=== PATIENT | female | born 1940 | race Caucasian/White ===

== ENCOUNTER 2019-11-19 00:24 | Day surgery (SDC) | payer MEDICARE, SELFPAY ==
[2019-11-03 13:59] VITALS: BMI 27.4
--- NOTE | 2019-11-18 13:46 | WPDANESEPPF ---
Anes - Initial Pre Proc Eval Procedure: Operation Date: 11/19/19 07:30 Proposed Procedures p Hammer Toe Repair Second and Third Digits Right Foot - Marek Bauer JR, MD Date/Time: 11/18/19 13:46 Surgeon: Marek Bauer JR, MD Pre Op Diagnosis: Hammer Toe 2nd and 3rd digits right foot Patient Data Age: 79 Gender: F Height: 5 ft 4 in Weight: 72.6 kg Allergies Allergy/AdvReac Type Severity Reaction Status Date / Time latex Allergy Unknown ITCHING Verified 11/03/19 13:28 AND RASH oxycodone Allergy Unknown Hallucinati Verified 11/03/19 13:18 ng tramadol Allergy Unknown Hallucinati Verified 11/03/19 13:15 ng Home Medications Medication Instructions Recorded Confirmed Type aspirin 325 mg PO DAILY 11/03/19 11/03/19 History cetirizine [Zyrtec] 10 mg PO DAILY 11/03/19 11/03/19 History famotidine [Pepcid AC] 20 mg PO PRN PRN 11/03/19 11/03/19 History hydrochlorothiazide 12.5 mg PO DAILY 11/03/19 11/03/19 History metoprolol succinate 25 mg PO DAILY 11/03/19 11/03/19 History multivit with min-folic acid 0.4 mg PO DAILY 11/03/19 11/03/19 History [Adult One Daily Multivitamin] naproxen sodium [Aleve] 220 mg PO BID PRN 11/03/19 11/03/19 History turmeric 400 mg PO DAILY 11/03/19 11/03/19 History Patient hx anesthesia problems: none Family hx anesthesia problems: none [facility] [place] Past Medical History Medical History (Updated 11/18/19 @ 13:46 by Duy Tom MD) Atrial fibrillation Breast cancer h/o breast cancer; and liver cancer; both resected GERD (gastroesophageal reflux disease) Hypertension MAIRNA (obstructive sleep apnea) Anes - Eval Final PreProcedure Day of Procedure 11/18/19 13:46 Patient weight: normal Heart: regular rate and rhythm Lungs: clear to auscultation Airway: Mallampati scale Neurological: alert and oriented Last oral intake: >/= 8 hours ASA classification: III Emergent: no Anesthetic plan: proceed Anesthesia type and monitoring: general GIVS and standard monitoring Informed Consent: The patient's anesthetic plan and its attendant risks and benefits were discussed with the patient/family/POA. Questions were solicited and answers provided to the satisfaction of the patient/family/POA.
--- NOTE | ~2019-11-19 | XR_ITS ---
EXAMINATION: XR surgery orthopedic DATE: 11/19/2019 08:11 INDICATION: Right foot hammertoe repair. TECHNIQUE: A single intraoperative fluoroscopic view of right foot was obtained. I was not present. F luoroscopy exposure time was 2.0 seconds. COMPARISON: None. FINDINGS: There are changes of fusion procedures of the second and third proximal interphalangeal joseline nts. No fracture. IMPRESSION: 1. Fusion procedures of the second and third proximal interphalangeal joints. Reviewed, dictated and finalized at location A. [employer]
[2019-11-19 06:15] VITALS: BP 170/81; PULSE 71; RESP 16; TEMP 36.7; O2SAT 98; BMI 28.0
[2019-11-19] MEDS: LACTATED RINGERS 1,000 ML 30 ML IV CONT (07:10)
--- NOTE | 2019-11-19 07:14 | WPDHPUPDATE1 ---
History and Physical Update Update Date/Time: 11/19/19 07:14 History and Physical has been reviewed, including an updated exam of the patient. There are NO changes in the patient's condition. Risks, benefits, and alternatives have been discussed and questions answered. Patient agrees to proceed with procedure.
[2019-11-19] MEDS: ceFAZolin 2 GM/D5W 50 ML 2 GM/50 ML BAG IVPB (07:27)
--- NOTE | 2019-11-19 08:21 | PM.OP ---
Procedure Note - Brief Procedure Note - Brief Date of procedure: 11/19/19 Pre-op diagnosis: Hammer Toe 2nd and 3rd digits right foot Post-op diagnosis: same Procedure performed: Hammertoe repair 2nd and 3rd digits of the right foot Anesthesia: GLMA Surgeon: Marek Bauer JR, DPM Estimated blood loss (mL): 1 Complications: No immediate complications Condition: stable Disposition: same day
[2019-11-19 08:31] VITALS: BP 164/53; PULSE 58; RESP 16; O2SAT 95
[2019-11-19 09:00] VITALS: BP 137/74; PULSE 64; RESP 16; O2SAT 100
[2019-11-19 09:22] VITALS: BP 150/87; PULSE 65; RESP 16
--- NOTE | 2019-11-19 09:38 | SUR.PHASEII ---
POST-OP SHOE PLACED TO RIGHT FOOT. FEELING RETURNING TO RIGHT GREAT TOE; ABLE TO WIGGLE IT.
--- NOTE | 2019-11-19 15:21 | OP_ITS ---
DATE OF PROCEDURE: 11/19/2019 PREOPERATIVE DIAGNOSIS: Hammertoe deformity, right 2nd and 3rd digits. POSTOPERATIVE DIAGNOSIS: Hammertoe deformity, right 2nd and 3rd digits. PROCEDURE: Hammertoe repair of the 2nd and 3rd digits of the right foot. PATHOLOGY: None. ANESTHESIA: MAC with local. HEMOSTASIS: Pneumatic ankle tourniquet at 250 mmHg. ESTIMATED BLOOD LOSS: Minimal. MATERIALS USED: [employer] Phalinx hammertoe implants, extra small and a small, 4-0 Vicryl and 4-0 Prolene. INJECTABLES: 20 cc of a 1:1 mixture of 2% lidocaine plain and 0.5% Marcaine plain injected preoperatively. COMPLICATIONS: None. PROCEDURE IN DETAIL: Under mild sedation, the patient was brought into the operating room, placed on the operating table in the supine position. Pneumatic ankle tourniquet was placed about the patient's right ankle. Following IV sedation, local anesthesia obtained about the right foot utilizing 20 cc of a 1:1 mixture of 2% lidocaine plain and 0.5% Marcaine plain. The foot was then scrubbed, prepped, and draped in the usual aseptic manner. An Esmarch bandage was then used to examine the patient's right foot and the pneumatic ankle tourniquet was inflated. Surgery began in the following manner: Attention was directed to the dorsal aspect of the 2nd digit of the right foot where a linear incision was made starting just distal to the proximal interphalangeal joint of the right 2nd digit and extending to the central shaft of the proximal phalanx. The incision was continued deep down to the subcutaneous tissues using sharp and blunt dissection. All bleeders were ligated and cauterized as necessary. At this point, a transverse tenotomy was performed over the dorsal aspect of the proximal interphalangeal joint of the right 2nd digit. Next, the periosteum and capsular structures were freed from the head of the proximal phalanx as well as the base of the middle phalanx. Next, an oscillating bone saw was used to resect the head of the proximal phalanx. Next, the [employer] hammertoe implant cannulated system was used to make a commercial helicopter pilot hole down the canal of the proximal phalanx. A planer was used to smooth the resection site to the proximal phalanx in order to make the resection site adequately apposed along the middle phalanx. Next, a small drill was used to make a canal for the proximal phalanx. The same procedure was also performed for the middle phalanx. Next, a small Phalinx from [employer] implant was screwed into the base of the middle phalanx and then the proximal stem of the hammertoe implant was adequately press-fitted into the proximal phalanx. Fluoroscopy was used to make sure that the implant was appropriately positioned. Excellent apposition of the proximal interphalangeal joint was noted. The same exact procedure was duplicated for the 3rd digit aside from the fact that I used an extra-small hammertoe implant from [employer] Phalin[employer] System. The wound sites were then flushed with copious amounts of sterile saline. The tendon overlying the proximal interphalangeal joint was reapproximated and coapted utilizing 4-0 Vicryl. Next, the subcutaneous structures were reapproximated and coapted utilizing 4-0 Vicryl and next the skin was reapproximated and coapted utilizing 4-0 Prolene in horizontal mattress suture fashion technique. Final fluoroscopic images were obtained to make sure that the hammertoe implants were adequately positioned within the 2nd and 3rd digits and also that there was excellent apposition. Upon completion of the procedure, the incision sites were dressed with Adaptic, 4x4s, Kerlix, and Coban. The pneumatic ankle tourniquet was then deflated and a prompt hyperemic response was noted to all digits of the right foot. A postop breonna
== END 2019-11-19 09:40 | disposition home or self-care (01) ==
PROVIDERS: PCP Pediatrics; Visit Provider Podiatrist Foot & Ankle Surgery
PROC: (CPT 28285; principal; 2019-11-19 07:30)
DX: M20.41 Other hammer toe(s) (acquired), right foot (principal); I48.91 Unspecified atrial fibrillation; I10 Essential (primary) hypertension; G47.33 Obstructive sleep apnea (adult) (pediatric); K21.9 Gastro-esophageal reflux disease without esophagitis; Z85.3 Personal history of malignant neoplasm of breast; Z85.05 Personal history of malignant neoplasm of liver; Z79.82 Long term (current) use of aspirin
CPT/HCPCS: 28285 ×2; A9270; C1713; J0690; J1100; J2405; J2704; J3010; J7120